=== PATIENT | male | born 1965 | race Caucasian/White ===

== ENCOUNTER 2017-04-18 15:13 | Observation (INO) ==
[2017-04-18] MEDS ORDERED: 0.9 % Sodium Chloride 1,000 ML IVC ONE (15:24)
--- NOTE | 2017-04-18 15:28 | Emergency Department Note ---
Disposition Clinical Impression: Transient cerebral ischemia Qualifiers: Transient cerebral ischemia type: unspecified Qualified Code(s): G45.9 - Transient cerebral ischemic attack, unspecified Disposition: Admitted As Inpatient Condition: Undetermined Time of Disposition: 19:12 Neuro HPI - General Chief Complaint: ED Neuro Symptoms/Deficit Stated Complaint: Neuro Sx/Light Headed Time Seen by Provider: 04/18/17 15:24 Source: patient Mode of arrival: ambulatory Limitations: no limitations Nursing Notes Reviewed: Yes Vital Signs Reviewed: Yes - History of Present Illness HPI Narrative: 52-year-old male with history of prediabetes, hypertension, history of PFO, arrives to [facility] emergency department complaining of lightheaded feeling, paresthesias on the right side of his face that started roughly 30 minutes prior to arrival. 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 He stated at that time he called a family member to bring him to the emergency department. The patient denies any chest pain, difficulty breathing, paresthesias other than of the face, weakness. The patient is resting comfortably on the bed. The patient states he is concerned as he has 2 brothers that are paralyzed due to previous stroke. Onset of Symptoms Date: 04/18/17 Onset of Symptoms Time: 15:00 Symptom Onset Unknown: Yes Location: right face History of same: No Severity: mild Quality: numbness Symptoms Improving: No Improves with: none Worsens with: none Context: sudden onset On Anticoagulants: No Associated symptoms: Reports: denies other symptoms Treatments Prior to Arrival: none - Related Data Home Medications: Home Medications Medication Instructions Recorded Confirmed Aspirin [Adult Low Dose Aspirin EC] 81 mg PO DAILY 03/03/16 04/18/17 Lisinopril/Hydrochlorothiazide 1 each PO DAILY 03/03/16 04/18/17 [Zestoretic 10-12.5 mg Tablet] Tamsulosin [Flomax] 0.4 mg PO DAILY 03/03/16 04/18/17 Diclofenac Sodium [Voltaren] 1 appl TP QID PRN 04/18/17 04/18/17 Naproxen [Naprosyn] 500 mg PO BID PRN 04/18/17 04/18/17 Allergies/Adverse Reactions: Allergies Allergy/AdvReac Type Severity Reaction Status Date / Time shellfish derived Allergy Rash Verified 11/14/15 22:22 All systems ED: reviewed and negative except as stated. Constitutional: Denies: fever, chills, weakness, weight change Eyes: Denies: eye pain, eye discharge, vision change ENT ED: Denies: ear pain, throat pain, dental pain, hearing loss, epistaxis, congestion, dysphagia Cardiovascular: Denies: chest pain, palpitations, dyspnea on exertion, edema, syncope Respiratory: Denies: cough, dyspnea, wheezes, hemoptysis, stridor Gastrointestinal: Reports: as per HPI Genitourinary: Denies: urgency, dysuria, frequency, hematuria Musculoskeletal: Denies: back pain, neck pain, arthralgia, myalgia Neurological: Reports: paresthesias. Denies: headache, weakness, numbness, confusion, abnormal gait, vertigo Past Medical History - Past Medical History Attestation: Yes The following information was validated with the patient. Source: patient Medical history: Reports: hypertension, other Surgical history: Reports: other Psychiatric history: Reports: no psych history - Social History Smoking Status: Never smoker Smokeless Tobacco Status: Yes Alcohol use: Reports: none Drug use: Reports: none Physical Exam Physical Exam: General: Patient alert, no acute distress, not lethargic HEENT: Head normal inspection, atraumatic, PERRLA, oropharynx grossly intact and normal, trachea midline, no JVD Chest: Nontraumatic, nontender, normal chest rise CV: RRR with no murmurs, rubs, gallops Respiratory: Lungs clear to auscultation bilaterally, no rales, rhonchi, wheezes. Abdomen: Normal inspection, Normal bowel sounds 4 quadrants, nontender to palpation : Patient deferred Extremities: Normal inspection, full range of motion, appropriate pulses, capillary refill under 2 seconds Neurological: Patient alert and oriented 3, GCS 15, patient has mild decreased sensation on right side of his face, no other deficits noted. Skin: Warm, intact, no rashes noted - General Limitations: no limitations General appearance: alert Course Course Narrative: Spoke with Dr. Gomez in Radiology. No acute findings on CT of he patient's head. Vital Signs Temperature 98.8 F 04/18/17 15:19 Pulse Rate 81 04/18/17 15:19 Respiratory Rate 18 04/18/17 15:19 Blood Pressure 171/94 04/18/17 15:19 O2 Sat by Pulse Oximetry 96 04/18/17 15:19 Temperature 98.8 F 04/18/17 15:19 Pulse Rate 70 04/18/17 16:25 Respiratory Rate 18 04/18/17 17:44 Blood Pressure 122/65 04/18/17 17:44 O2 Sat by Pulse Oximetry 96 04/18/17 16:25 Oxygen Delivery Oxygen Delivery Room Air Neuro Symptoms/Deficit - Lab Data Result diagrams: 04/18/17 15:35 04/18/17 15:35 Lab Results 04/18/17 04/18/17 04/18/17 Range/Units 15:35 15:35 15:35 WBC 9.7 (4.3-11.1) K/mcL RBC 5.14 (4.19-5.50) M/mcL Hgb 14.4 (12.9-16.9) g/dL Hct 45.7 (37.5-50.1) % MCV 88.9 (83.0-100.0) fL MCH 28.0 (28.0-33.3) pg MCHC 31.5 L (31.6-35.5) g/dL RDW 13.7 (11.5-14.5) % Plt Count 228 (140-400) K/mcL MPV 11.0 (9.4-12.4) fL Immature Gran % 0.8 (0-4) % Seg Neutrophils % 61.8 % Lymphocytes % 25.3 % Monocytes % 9.6 % Eosinophils % 2.0 % Basophils % 0.5 % Neutrophils # 6.0 (1.6-8.9) K/mcL Lymphocytes # 2.4 (0.6-4.6) K/mcL Monocytes # 0.9 (0.0-1.3) K/mcL Eosinophils # 0.2 (0.0-0.6) K/mcL Basophils # 0.1 (0.0-0.2) K/mcL PT 11.0 (9.4-12.1) Seconds INR 1.0 APTT 32.9 (26.0-36.0) Seconds Sodium 139 (136-145) mEq/L Potassium 4.1 (3.5-4.5) mEq/L Chloride 106 (98-109) mEq/L Carbon Dioxide 26 (19-29) mEq/L BUN 19 (8-26) mg/dL Creatinine 0.92 (0.72-1.25) mg/dL Est GFR ( Amer) > 60 (> 60) Est GFR (Non-Af Amer) > 60 (> 60) BUN/Creatinine Ratio 21 (6-26) Glucose 90 (70-99) mg/dL Calculated Osmolality 290 (280-300) Calcium 9.4 (8.6-10.8) mg/dL Troponin I (0-0.03) ng/mL 04/18/17 Range/Units 15:35 WBC (4.3-11.1) K/mcL RBC (4.19-5.50) M/mcL Hgb (12.9-16.9) g/dL Hct (37.5-50.1) % MCV (83.0-100.0) fL MCH (28.0-33.3) pg MCHC (31.6-35.5) g/dL RDW (11.5-14.5) % Plt Count (140-400) K/mcL MPV (9.4-12.4) fL Immature Gran % (0-4) % Seg Neutrophils % % Lymphocytes % % Monocytes % % Eosinophils % % Basophils % % Neutrophils # (1.6-8.9) K/mcL Lymphocytes # (0.6-4.6) K/mcL Monocytes # (0.0-1.3) K/mcL Eosinophils # (0.0-0.6) K/mcL Basophils # (0.0-0.2) K/mcL PT (9.4-12.1) Seconds INR APTT (26.0-36.0) Seconds Sodium (136-145) mEq/L Potassium (3.5-4.5) mEq/L Chloride (98-109) mEq/L Carbon Dioxide (19-29) mEq/L BUN (8-26) mg/dL Creatinine (0.72-1.25) mg/dL Est GFR ( Amer) (> 60) Est GFR (Non-Af Amer) (> 60) BUN/Creatinine Ratio (6-26) Glucose (70-99) mg/dL Calculated Osmolality (280-300) Calcium (8.6-10.8) mg/dL Troponin I 0.01 (0-0.03) ng/mL - EKG Data EKG attestation: Yes I reviewed and interpreted this EKG. EKG results narrative: Heart rate 81 bpm. MI interval 149 ms. QTC 398 ms. Normal axis. Normal sinus rhythm. No ST elevation or ST depression noted. EKG from 11/15/15 identical in appearance. NIH Stroke Scale - Level of Consciousness LOC: Alert - LOC Questions LOC Questions: Answers both correctly - LOC Commands LOC Commands: Performs both correctly - Best Gaze Best Gaze: Normal - Visual Visual: No visual loss - Facial Palsy Facial Palsy: Normal - Motor Arms Motor Arm-Left: No drift for 10 seconds Motor Arm-Right: No drift for 10 seconds - Motor Legs Motor Leg-Left: No drift for 5 seconds Motor Leg-Right: No drift for 5 seconds - Limb Ataxia Limb Ataxia: Normal, No Ataxia - Sensory Sensory: Mild to moderate loss, "not as sharp" - Best Language Best Language: No aphasia - Dysarthria Dysarthria: Normal - Extinction and Inattention Extinction and Inattention: Normal - NIHSS Total Score NIHSS Total Score: 1 TPA Checklist - LKW: 3-4.5 hrs Add. Contraindications Patient/family understanding: The patient/family members have been counseled and understood the risk, benefit , and alternatives of treatment.
[2017-04-18 15:44] LABS: Basophils # 0.1 K/mcL (0.0-0.2); Basophils % 0.5 %; Eosinophils # 0.2 K/mcL (0.0-0.6); Hematocrit 45.7 % (37.5-50.1); Hemoglobin 14.4 g/dL (12.9-16.9); Immature Granulocytes % 0.8 % (0-4); Lymphocytes # 2.4 K/mcL (0.6-4.6); Lymphocytes % 25.3 %; Mean Corpuscular HGB Conc 31.5 g/dL (31.6-35.5); Mean Corpuscular Volume 88.9 fL (83.0-100.0); Monocytes # 0.9 K/mcL (0.0-1.3); Monocytes % 9.6 %; Red Blood Count 5.14 M/mcL (4.19-5.50); Red Cell Distribution Width 13.7 % (11.5-14.5); Segmented Neutrophils % 61.8 %
[2017-04-18 15:46] LABS: Platelet Count 228 K/mcL (140-400)
[2017-04-18 15:54] LABS: Activated Partial Thrombo Time 32.9 Seconds (26.0-36.0)
[2017-04-18 16:02] LABS: BUN/Creatinine Ratio 21 (6-26); Blood Urea Nitrogen 19 mg/dL (8-26); Calcium 9.4 mg/dL (8.6-10.8); Carbon Dioxide 26 mEq/L (19-29); Chloride 106 mEq/L (98-109); Glucose 90 mg/dL (70-99); Osmolality,Calculated 290 (280-300); Potassium 4.1 mEq/L (3.5-4.5); Sodium 139 mEq/L (136-145); eGFR For African Americans > 60 (> 60); eGFR For Non-African Americans > 60 (> 60)
[2017-04-18] MEDS ORDERED: Aspirin 325 MG TABLET PO ONE ×2 (16:33→17:30)
--- NOTE | 2017-04-18 17:04 | Emergency Department Note ---
Disposition Clinical Impression: Transient cerebral ischemia Disposition: Admitted As Inpatient Condition: Undetermined General Adult HPI - General Chief complaint: ED Neuro Symptoms/Deficit Stated complaint: Neuro Sx/Light Headed Time Seen by Provider: 04/18/17 15:24 Source: patient Mode of arrival: ambulatory Limitations: no limitations - History of Present Illness Pain Scale: 4 - Related Data Home Medications Medication Instructions Recorded Confirmed Aspirin [Adult Low Dose Aspirin EC] 81 mg PO DAILY 03/03/16 04/18/17 Lisinopril/Hydrochlorothiazide 1 each PO DAILY 03/03/16 04/18/17 [Zestoretic 10-12.5 mg Tablet] Tamsulosin [Flomax] 0.4 mg PO DAILY 03/03/16 04/18/17 Diclofenac Sodium [Voltaren] 1 appl TP QID PRN 04/18/17 04/18/17 Naproxen [Naprosyn] 500 mg PO BID PRN 04/18/17 04/18/17 Allergies Allergy/AdvReac Type Severity Reaction Status Date / Time shellfish derived Allergy Rash Verified 11/14/15 22:22 Constitutional: Denies: fever, chills, weakness, weight change Eyes: Denies: eye pain, eye discharge, vision change ENT ED: Denies: ear pain, throat pain, dental pain, hearing loss, epistaxis, congestion, dysphagia Cardiovascular: Denies: chest pain, palpitations, dyspnea on exertion, edema, syncope Respiratory: Denies: cough, dyspnea, wheezes, hemoptysis, stridor Gastrointestinal: Reports: as per HPI Genitourinary: Denies: urgency, dysuria, frequency, hematuria Musculoskeletal: Denies: back pain, neck pain, arthralgia, myalgia Neurological: Reports: paresthesias. Denies: headache, weakness, numbness, confusion, abnormal gait, vertigo Past Medical History - Past Medical History Medical history: Reports: hypertension, other Surgical history: Reports: other Psychiatric history: Reports: no psych history - Social History Smoking Status: Never smoker Smokeless Tobacco Status: Yes Alcohol use: Reports: none Drug use: Reports: none Physical Exam - General Limitations: no limitations General appearance: alert Course - Reevaluation(s) Reevaluation #1: I staffed the patient with the resident, Dr. Stringer. Patient presented with some facial numbness and weakness. There is concerned this could be indicative of a TIA. We called a stroke alert and the [facility] neurologists cleared the patient because all symptoms had resolved by the time the patient had gotten on the camera. The rest of our workup here was unremarkable. We spoke to our neurologist here who did feel that he is definitely concern. We will be arranging to admit the patient to the medicine service because this is not the first time the symptoms it happened the patient, therefore he needs a thorough workup. Time: 17:04 Vital Signs Temperature 98.8 F 04/18/17 15:19 Pulse Rate 81 04/18/17 15:19 Respiratory Rate 18 04/18/17 15:19 Blood Pressure 171/94 04/18/17 15:19 O2 Sat by Pulse Oximetry 96 04/18/17 15:19 Temperature 97.9 F 04/18/17 19:59 Pulse Rate 65 04/18/17 19:59 Respiratory Rate 16 04/18/17 19:59 Blood Pressure 138/85 04/18/17 19:59 O2 Sat by Pulse Oximetry 77 04/18/17 20:20 Oxygen Delivery Oxygen Delivery Room Air Medical Decision Making - Lab Data Result diagrams: 04/18/17 15:35 04/18/17 15:35 Lab Results 04/18/17 04/18/17 04/18/17 Range/Units 15:35 15:35 15:35 WBC 9.7 (4.3-11.1) K/mcL RBC 5.14 (4.19-5.50) M/mcL Hgb 14.4 (12.9-16.9) g/dL Hct 45.7 (37.5-50.1) % MCV 88.9 (83.0-100.0) fL MCH 28.0 (28.0-33.3) pg MCHC 31.5 L (31.6-35.5) g/dL RDW 13.7 (11.5-14.5) % Plt Count 228 (140-400) K/mcL MPV 11.0 (9.4-12.4) fL Immature Gran % 0.8 (0-4) % Seg Neutrophils % 61.8 % Lymphocytes % 25.3 % Monocytes % 9.6 % Eosinophils % 2.0 % Basophils % 0.5 % Neutrophils # 6.0 (1.6-8.9) K/mcL Lymphocytes # 2.4 (0.6-4.6) K/mcL Monocytes # 0.9 (0.0-1.3) K/mcL Eosinophils # 0.2 (0.0-0.6) K/mcL Basophils # 0.1 (0.0-0.2) K/mcL PT 11.0 (9.4-12.1) Seconds INR 1.0 APTT 32.9 (26.0-36.0) Seconds Sodium 139 (136-145) mEq/L Potassium 4.1 (3.5-4.5) mEq/L Chloride 106 (98-109) mEq/L Carbon Dioxide 26 (19-29) mEq/L BUN 19 (8-26) mg/dL Creatinine 0.92 (0.72-1.25) mg/dL Est GFR ( Amer) > 60 (> 60) Est GFR (Non-Af Amer) > 60 (> 60) BUN/Creatinine Ratio 21 (6-26) Glucose 90 (70-99) mg/dL Calculated Osmolality 290 (280-300) Calcium 9.4 (8.6-10.8) mg/dL Troponin I (0-0.03) ng/mL /04/29 Range/Units 15:35 WBC (4.3-11.1) K/mcL RBC (4.19-5.50) M/mcL Hgb (12.9-16.9) g/dL Hct (37.5-50.1) % MCV (83.0-100.0) fL MCH (28.0-33.3) pg MCHC (31.6-35.5) g/dL RDW (11.5-14.5) % Plt Count (140-400) K/mcL MPV (9.4-12.4) fL Immature Gran % (0-4) % Seg Neutrophils % % Lymphocytes % % Monocytes % % Eosinophils % % Basophils % % Neutrophils # (1.6-8.9) K/mcL Lymphocytes # (0.6-4.6) K/mcL Monocytes # (0.0-1.3) K/mcL Eosinophils # (0.0-0.6) K/mcL Basophils # (0.0-0.2) K/mcL PT (9.4-12.1) Seconds INR APTT (26.0-36.0) Seconds Sodium (136-145) mEq/L Potassium (3.5-4.5) mEq/L Chloride (98-109) mEq/L Carbon Dioxide (19-29) mEq/L BUN (8-26) mg/dL Creatinine (0.72-1.25) mg/dL Est GFR ( Amer) (> 60) Est GFR (Non-Af Amer) (> 60) BUN/Creatinine Ratio (6-26) Glucose (70-99) mg/dL Calculated Osmolality (280-300) Calcium (8.6-10.8) mg/dL Troponin I 0.01 (0-0.03) ng/mL Attestation Statement - Attestation Attestation: I, Dr. Marsh, examined this patient and my medical decision-making was reviewed with Dr. Leon, Resident Physician. I agree with the documented findings, disposition and treatment plan as described except to the extent set forth below. Please see my partner's note for details.
[2017-04-18] MEDS ORDERED: Naloxone 0.4 MG/ML INJ IVP PRN (21:05)
--- NOTE | 2017-04-18 21:20 | Internal Med History&Physical ---
<Enma Sagastume - Last Filed: 04/18/17 21:25> Date of Encounter: 04/18/17 Time of Encounter: 21:18 Assessment and Plan (1) Transient cerebral ischemia Current visit: Yes Status: Acute Per history and 2006, now with episode of right-sided facial numbness and tingling that resolved prior to admission. Head CT negative. Appears neurologically intact no deficits apparent. Hgb A1c, TSH, lipid panel, echo, carotid Dopplers and brain MRI pending. Consult Neurology if needed Qualifiers: Transient cerebral ischemia type: unspecified Qualified Code(s): G45.9 - Transient cerebral ischemic attack, unspecified (2) PFO (patent foramen ovale) Current visit: Yes Status: Acute s/p repair 2006. Cont ASA, echo pending (3) Hypertension Current visit: Yes Status: Acute controlled, cont home BP medications Qualifiers: Qualified Code(s): I10 - Essential (primary) hypertension (4) BPH (benign prostatic hyperplasia) Current visit: Yes Status: Acute cont home medication regimen Qualifiers: Qualified Code(s): N40.0 - Benign prostatic hyperplasia without lower urinary tract symptoms (5) DVT prophylaxis Current visit: Yes Status: [facility] Internal Medicine - H&P: HPI Chief complaint: Right sided face numbness and tingling History of present illness: Mr. Mckee is a 52 year old male with past medical history morbid obesity, PFO closure, TIA, BPH who presented to [facility] 04/18/2017 with complaints of right-sided face numbness and tingling. He was placed in observation status for CVA rule out. Patient says he was at work today driving when he had acute onset of right-sided facial numbness and tingling says he felt like his "felt heart beating in his head. Episode lasted only a few minutes. No numbness or tingling no vision changes no vision loss. Past Med Surg Social Fam HX - Past Medical History Medical history: hypertension, other Psychiatric history: no psych history - Past Surgical History Surgical History: other (PFO closure) - Social History Smoking Status: Never smoker Smokeless Tobacco Status: Yes Alcohol use: none Drug use: none - Family History Brother Hx Family Neurologic Disorders: Yes (CVA) Internal Medicine - H&P: Meds Aspirin [Adult Low Dose Aspirin EC] 81 mg PO DAILY 04/21/16 [History] Lisinopril/Hydrochlorothiazide [Zestoretic 10-12.5 mg Tablet] 1 each PO DAILY [History] Tamsulosin [Flomax] 0.4 mg PO DAILY 03/03/16 [History] Diclofenac Sodium [Voltaren] 1 appl TP QID PRN 04/18/17 [History] Naproxen [Naprosyn] 500 mg PO BID PRN 04/18/17 [History] Allergies shellfish derived Allergy (Verified 11/14/15 22:22) Rash All Systems PM: A 10-system review of systems was performed and is negative for pertinent findings except as documented above in the HPI. - Constitutional Constitutional: no chills, no fever(s), no night sweats - EENT Eyes: no change in vision, no discharge, no pain, no photophobia Ears: no ear discharge, no ear pain, no tinnitus Nose, mouth and throat: no dysphagia, no nasal discharge, no neck pain, no sore throat - Cardiovascular Cardiovascular ROS IM: no chest pain, no diaphoresis, no dyspnea, no lightheadedness, no palpitations, no syncope - Respiratory Respiratory: no cough, no dyspnea, no wheezing, no excessive phlegm production - Gastrointestinal Gastrointestinal: no abdominal pain, no diarrhea, no hematemesis, no hematochezia, no melena, no nausea, no vomiting - Musculoskeletal Musculoskeletal ROS IM: no numbness, no tingling - Integumentary Integumentary IM: no rash, no unusual bruising - Neurological Neurological ROS: no confusion, no convulsions, no focal weakness, no numbness, no tingling, no tremor(s) - Hematologic/Lymphatic Hematologic/Lymphatic: no easy bruising - Constitutional Vitals: Temp Pulse Resp BP Pulse Ox 97.9 F 65 16 138/85 77 04/18/17 19:59 04/18/17 19:59 04/18/17 19:59 04/18/17 19:59 04/18/17 20:20 General appearance: Present: A&O X 3, obese - Head Head exam: Present: atraumatic, normocephalic - Eye Eye exam: Present: PERRL, conjuntiva pink, sclera anicteric Pupils: Present: PERRL - Neck Neck exam general surgery: Present: supple, trachea midline. Absent: lymphadenopathy - Respiratory Respiratory exam: Present: CTAB. Absent: accessory muscle use, rales, rhonchi, wheezes - Cardiovascular Cardiovascular exam: Present: RRR, +S1, +S2. Absent: diastolic murmur, gallop, rubs, systolic murmur - GI/Abdominal GI/Abdominal exam: Present: normal bowel sounds, soft, no peritoneal signs. Absent: distended, tenderness - Extremities Exam Extremities exam: Present: warm, radial pulses palpable and symetrical. Absent : calf tenderness, cyanotic, pedal edema - Neurological Exam Neurological exam: Present: alert, CN II-XII intact, oriented X3, no focal deficits, strengths equal and symetr throughout. Absent: pronater drift, facial droop, speech deficit - Skin Skin exam: Present: dry, intact Internal Med - H&P Results - Labs CBC & Chem 7: 04/18/17 15:35 04/18/17 15:35 <Pablo Simon - Last Filed: 04/18/17 21:53> Date of Encounter: 04/18/17 Internal Medicine - H&P: HPI History of present illness: Mr. Mckee is a 52 year old male All Systems PM: A 10-system review of systems was performed and is negative for pertinent findings except as documented above in the HPI. - Constitutional Vitals: Temp Pulse Resp BP Pulse Ox 97.9 F 65 16 138/85 77 04/18/17 19:59 04/18/17 19:59 04/18/17 19:59 04/18/17 19:59 04/18/17 20:20 Internal Med - H&P Results - Labs CBC & Chem 7: 04/18/17 15:35 04/18/17 15:35 - Attending Attestation I examined this patient and my medical decision-making was reviewed with Ms. Sagastume. I agree with the documented findings, disposition and treatment plan as described except to the extent set forth below. 52 yo CM with history of TIA and PFO s/p closure comes in due to sudden onset facial numbness, double vision, head pressure and balance problems that lasted for a few hours. On exam, neurologically intact. CTAB. S1 & S2 present without murmurs, rubs or gallops. Labs reviewed. EKG personally reviewed - S. rhythm without any ST-T changes A/P: 1. TIA - Place on telemetry to observation. Patient failed aspirin. DC ASA. Start plavix and statin. ECHO and carotid dopplers. MRI in AM. 2. HTN JOSE GrBS
[2017-04-19 04:58] LABS: Basophils # 0.1 K/mcL (0.0-0.2); Basophils % 0.6 %; Eosinophils # 0.2 K/mcL (0.0-0.6); Eosinophils % 2.9 %; Hematocrit 41.3 % (37.5-50.1); Lymphocytes # 2.1 K/mcL (0.6-4.6); Lymphocytes % 25.3 %; Mean Corpuscular HGB Conc 30.8 g/dL (31.6-35.5); Mean Corpuscular Hemoglobin 27.4 pg (28.0-33.3); Mean Corpuscular Volume 89.2 fL (83.0-100.0); Mean Platelet Volume 11.6 fL (9.4-12.4); Monocytes % 11.9 %; Neutrophils # 4.9 K/mcL (1.6-8.9); Platelet Count 217 K/mcL (140-400); Red Blood Count 4.63 M/mcL (4.19-5.50); Red Cell Distribution Width 13.9 % (11.5-14.5); Segmented Neutrophils % 58.3 %
[2017-04-19 05:05] LABS: Hemoglobin 12.7 g/dL (12.9-16.9)
[2017-04-19 05:06] LABS: Hemoglobin A1C 5.8 %
[2017-04-19 05:13] LABS: Alanine Aminotransferase 21 Units/L (0-55); Albumin 2.9 g/dL (3.5-5.0); Albumin/Globulin Ratio 0.9 (1.1-2.2); Alkaline Phosphatase 65 Units/L (38-126); Aspartate Amino Transferase 15 Units/L (5-34); BUN/Creatinine Ratio 18 (6-26); Bilirubin,Total 0.3 mg/dL (0.2-1.2); Blood Urea Nitrogen 22 mg/dL (8-26); Calcium 8.5 mg/dL (8.6-10.8); Carbon Dioxide 28 mEq/L (19-29); Chloride 107 mEq/L (98-109); Chol/HDL Ratio 3.8 (0-4.9); Cholesterol 156 mg/dL (< 200); Globulin 3.3 g/dL (2.4-3.5); Glucose 94 mg/dL (70-99); HDL Cholesterol 41 mg/dL (40-59); LDL Cholesterol,Calculated 91 mg/dL (0-99); Osmolality,Calculated 295 (280-300); Sodium 141 mEq/L (136-145); Total Protein 6.2 g/dL (6.0-8.3); Triglycerides 120 mg/dL (< 150); eGFR For African Americans > 60 (> 60); eGFR For Non-African Americans > 60 (> 60)
[2017-04-19] MEDS: *HR* Enoxaparin 40 MG/0.4 ML SYRINGE SQ SCH (05:57)
[2017-04-19] MEDS ORDERED: Aspirin Enteric Coated 81 MG Tablet PO SCH (09:00)
--- NOTE | 2017-04-19 11:21 | Electrocardiograph Report ---
[place] [id number] Test Date: 2017-04-18 Pat Name: Fred Mckee Department: 105 Room: 3B13 Gender: M Region Manager: : [id number] Requested By: Vahe Stringer Order Number: [id number] Reading MD: Karan Crook MD Measurements Intervals [place] Rate: 81 P: -15 [place]: 149 QRS: 18 QRSD: 88 T: 17 QT: 361 QTc: 398 Interpretive Statements SINUS RHYTHM Poor R wave progression Electronically Signed On 04-19-2017 11:19:42 EDT by Karan Crook MD
--- NOTE | 2017-04-19 16:08 | Internal Med Progress Note ---
Date of Encounter: 04/19/17 - Constitutional Vitals: Temp Pulse Resp BP Pulse Ox 98.0 F 87 17 166/82 90 04/19/17 15:40 04/19/17 15:40 04/19/17 15:40 04/19/17 15:40 04/19/17 15:40 General appearance: Present: A&O X 3, obese Internal Medicine: Result - Labs CBC & Chem 7: 04/19/17 03:42 04/19/17 03:42 Labs: Short CBC 04/19/17 Range/Units 03:42 WBC 8.4 (4.3-11.1) K/mcL Hgb 12.7 L D (12.9-16.9) g/dL Hct 41.3 (37.5-50.1) % Plt Count 217 (140-400) K/mcL Neutrophils # 4.9 (1.6-8.9) K/mcL BMP 04/19/17 03:42 Sodium 141 Potassium 4.0 Chloride 107 Carbon Dioxide 28 BUN 22 Creatinine 1.22 Glucose 94 Calcium 8.5 L Liver Function 04/19/17 Range/Units 03:42 Total Bilirubin 0.3 (0.2-1.2) mg/dL AST 15 (5-34) Units/L ALT 21 (0-55) Units/L Alkaline Phosphatase 65 (38-126) Units/L Albumin 2.9 L (3.5-5.0) g/dL - ABG Interpretation ABG results: PT/INR, D-dimer PT 11.0 Seconds (9.4-12.1) 04/18/17 15:35 - Impressions Impressions Brain MRI 04/19/17 07:00 IMPRESSION: Unremarkable exam D/ / Fly Fox MD / Fly Fox MD Interpreting Provider: Fly Fox MD Consult Discharge Plan - Plan Referrals: Vahe Pruett DO [Primary Care Provider] -
--- NOTE | 2017-04-19 16:24 | Internal Med Progress Note ---
Date of Encounter: 04/19/17 Time of Encounter: 11:00 - Assessment and plan (1) Transient cerebral ischemia Current Visit: Yes Status: Acute Assessment and plan: History of same in the past. Patient was found at that time to have a PFO that was surgically repaired in 2006. Patient reports sudden onset right-sided facial numbness and tingling, blurred vision, confusion, "blacking out". Patient has strong family history CVA with 2 brothers who have had CVAs in the past. MRI was negative, as was echocardiogram, EF of 65%, normal systolic function, mild diastolic dysfunction and no significant valvular dysfunction, no pulmonary hypertension, and no evidence of PFO. Patient does have 80-99% stenosis of right ICA. Patient is aware and vascular has been consulted. I spoke with Dr. Pretty who will be here to see patient after office hours. Neurology is here to see pt at this time. Qualifiers: Transient cerebral ischemia type: unspecified Qualified Code(s): G45.9 - Transient cerebral ischemic attack, unspecified (2) Carotid stenosis, right Current Visit: Yes Status: Acute Assessment and plan: 80-99% stenosis right ICA. 60-79% left ICA. Velocities appear to be through the tortuous vessels. Vascular surgery has been consulted and will see patient after office hours. (3) PFO (patent foramen ovale) Current Visit: Yes Status: Resolved Assessment and plan: History. Repaired in 2006. (4) Hypertension Current Visit: Yes Status: Chronic Assessment and plan: Chronic. Continue home medication. Well-controlled at inpatient setting. Qualifiers: Hypertension type: essential hypertension Qualified Code(s): I10 - Essential (primary) hypertension (5) BPH (benign prostatic hyperplasia) Current Visit: Yes Status: Acute Assessment and plan: Continue medications. Qualifiers: Prostatic enlargement morphology: unspecified morphology Lower urinary tract symptom presence: presence of symptoms unspecified Qualified Code(s): N40.0 - Benign prostatic hyperplasia without lower urinary tract symptoms (6) DVT prophylaxis Current Visit: Yes Status: Acute Assessment and plan: Lovenox subcutaneous daily. - Time Spent With Patient less than 15 minutes - Subjective Interval history: Patient has returned from testing. He is sitting up in a bedside chair. He is alert and oriented and without any neurological deficits. His speech is clear, he denies any blurred vision or vision changes, his grasps and extremity strength are strong and equal bilaterally. Facial movements are symmetrical. Patient states that he was driving yesterday and became confused, "blacking out ". He also reports blurred vision and right-sided facial numbness and tingling that resolved prior to admission. He became concerned and came to the emergency department. He has a strong family history of CVA, he has 2 brothers who have had strokes in the past. He has also had a TIA in the past. He had a PFO that was found during an echocardiogram after his last TIA, it was surgically repaired in 2006. - Constitutional Vitals: Temp Pulse Resp BP Pulse Ox 98.0 F 87 17 166/82 90 04/19/17 15:40 04/19/17 15:40 04/19/17 15:40 04/19/17 15:40 04/19/17 15:40 General appearance: Present: cooperative, A&O X 3, morbidly obese, no acute distress, obese, answers questions appropriately - Head Head exam: Present: normal inspection - Eye Eye exam: Present: normal appearance, conjuntiva pink. Absent: nystagmus - ENT ENT exam: Present: mucous membranes moist, normal exam - Neck Neck exam general surgery: Present: normal inspection. Absent: lymphadenopathy , tenderness - Respiratory Respiratory exam: Present: CTAB, respiratory distress. Absent: chest wall tenderness, rales, rhonchi, stridor, wheezes, tachypnea - Cardiovascular Cardiovascular exam: Present: RRR, +S1, +S2. Absent: bradycardia, clicks, diastolic murmur, gallop, systolic murmur, tachycardia - Expanded Cardiovascular Exam Peripheral pulses: 1+: Dorsalis Pedis (L) PM, Dorsalis Pedis (R) PM - GI/Abdominal GI/Abdominal exam: Present: distended, normal bowel sounds, soft. Absent: firm , hernia, hepatomegaly, tenderness - Extremities Exam Extremities exam: Present: full ROM, pedal edema, warm, radial pulses palpable and symetrical. Absent: tenderness Additional comments: Normal for patient. +1-2 nonpitting. - Neurological Exam Neurological exam: Present: alert, oriented X3, no focal deficits, strengths equal and symetr throughout. Absent: altered, motor sensory deficit, pronater drift, facial droop, speech deficit Internal Medicine: Result - Labs CBC & Chem 7: 04/19/17 03:42 04/19/17 03:42 Labs: Short CBC 04/19/17 Range/Units 03:42 WBC 8.4 (4.3-11.1) K/mcL Hgb 12.7 L D (12.9-16.9) g/dL Hct 41.3 (37.5-50.1) % Plt Count 217 (140-400) K/mcL Neutrophils # 4.9 (1.6-8.9) K/mcL BMP 04/19/17 03:42 Sodium 141 Potassium 4.0 Chloride 107 Carbon Dioxide 28 BUN 22 Creatinine 1.22 Glucose 94 Calcium 8.5 L Liver Function 04/19/17 Range/Units 03:42 Total Bilirubin 0.3 (0.2-1.2) mg/dL AST 15 (5-34) Units/L ALT 21 (0-55) Units/L Alkaline Phosphatase 65 (38-126) Units/L Albumin 2.9 L (3.5-5.0) g/dL - ABG Interpretation ABG results: PT/INR, D-dimer PT 11.0 Seconds (9.4-12.1) 04/18/17 15:35 - Impressions Impressions Brain MRI 04/19/17 07:00 IMPRESSION: Unremarkable exam D/ / Fly Fox MD / Fly Fox MD Interpreting Provider: Fly Fox MD Consult Discharge Plan - Plan Referrals: Vahe Pruett DO [Primary Care Provider] -
--- NOTE | 2017-04-19 17:09 | Neurology - Consult Note ---
Date of Encounter: 04/19/17 Time of Encounter: 17:06 Assessment and Plan (1) Transient cerebral ischemia Current Visit: Yes Status: Acute I believe this gentleman did suffer an episode of left cerebral hemispheric transient ischemia. This is likely due to the left internal carotid artery stenosis. Other factors to consider might be genetic factors, and I also believe that a hypercoagulable workup is in order. Vascular evaluation is yet pending. I would probably recommend starting him on Plavix 75 mg daily at some point. Echocardiogram has been completed and was negative. Risk factor management is paramount. Additional testing from my perspective at this time is not necessary. Counseling regarding dietary measures and weight reduction is also indicated. I will reevaluate him at your request. The documentation in the history of HPI and plan were at least partially created by [employer] recognition technology by Dr. Rodríguez. Errors in grammar, wording or other phrases may exist. If errors are found after the documentation signed, they will be addressed individually in the addendum section of this document when appropriate. Qualifiers: Transient cerebral ischemia type: unspecified Qualified Code(s): G45.9 - Transient cerebral ischemic attack, unspecified History of Present Illness HPI: Mr. Mckee is a 52 year old male who was seen and evaluated secondary to an episode of transient cerebral ischemia is a very pleasant gentleman with a history of hypertension and glucose intolerance and morbid obesity. He informs me that he experienced sudden onset of paresthesias of the right face along with blurred vision. He states that he felt a bit disoriented initially. His symptoms resolved after about a minute or so. He denied headache denied numbness tingling or weakness of the right arm or leg. He denied diplopia. Denied any speech difficulties. Currently he is back to his baseline. MRI scan brain was completely normal. Carotid duplex Doppler studies reveal 80-99% stenosis of the right internal carotid artery and 60-79% stenosis of the more symptomatic left ICA. The left ICA stenosis was more likely responsible for this event. He does have a history of PFO which is been previously closed. He also reports a family history of individuals having stroke at a young age. He admits to his taking aspirin 81 mg daily prior to this event. Past Med Surg Social Fam HX - Past Medical History Medical history: hypertension, other Psychiatric history: no psych history - Past Surgical History Surgical History: other - Social History Smoking Status: Never smoker Smokeless Tobacco Status: Yes Alcohol use: none Drug use: none - Family History Brother Hx Family Neurologic Disorders: Yes (CVA) Medications and Allergies Aspirin [Adult Low Dose Aspirin EC] 81 mg PO DAILY 03/03/16 [History] Lisinopril/Hydrochlorothiazide [Zestoretic 10-12.5 mg Tablet] 1 each PO DAILY [History] Tamsulosin [Flomax] 0.4 mg PO DAILY 03/03/16 [History] Diclofenac Sodium [Voltaren] 1 appl TP QID PRN 04/18/17 [History] Naproxen [Naprosyn] 500 mg PO BID PRN 04/18/17 [History] Allergies shellfish derived Allergy (Verified 11/14/15 22:22) Rash All Systems: A 10-system review of systems was performed and is negative for pertinent findings except as documented above in the HPI. Review of Systems: Review of systems is consistent with a history of present illness otherwise negative. Physical Examination - Vital Signs Vital Signs: Initial Vital Signs Temp Pulse Resp BP Pulse Ox 98.8 F 81 18 171/94 96 04/18/17 15:19 04/18/17 15:19 04/18/17 15:19 04/18/17 15:19 04/18/17 15:19 - Neurologic Detailed motor examination: full strength in all major muscle groups Motor examination - right side: 5/5: deltoids, biceps, triceps, wrist flexion, wrist extension, science specialist, hip flexors, tibialis Anterior, quadriceps, toe extension (EHL), plantarflexion Motor examination - left side: 5/5: deltoids, biceps, triceps, wrist flexion, wrist extension, hip flexors, science specialist, quadriceps, tibialis Anterior, toe extension (EHL), plantarflexion Reflexes: Biceps: 1+, Triceps: 1+, Brachioradialis: 1+, Patella: 1+, Achilles: 1 + Mental Status Examination: awake, alert, oriented to person, oriented to place, oriented to time, follows commands appropriately, answers questions appropriately, no agnosia, no aphasia, no aproxia Cranial nerve examination: PERRL, EOMI, visual castellanos intact, corneal reflexes brisk symmetrically, sensory to face intact, mastication intact, no facial asymmetry is present, no dysarthria, hearing is intact symmetrically, soft palate elevates bilaterally upon phonation, gag reflex intact, flexes SCM and trapezius muscles symmetrically with full power, tongue protrudes midline, no atrophy or facial fasiculations present Cerebellar examination: no dysmetria, performs finger to nose and heel to willis symmetrically without ataxia, no gait ataxia, no truncal ataxia, no difficulty with rapid alternating movements Results - Laboratory Findings CBC and BMP: 04/19/17 03:42 04/19/17 03:42 Abnormal lab findings: Abnormal lab results Hgb 12.7 g/dL (12.9-16.9) L D 04/19/17 03:42 MCH 27.4 pg (28.0-33.3) L 04/19/17 03:42 MCHC 30.8 g/dL (31.6-35.5) L 04/19/17 03:42 Hemoglobin A1c 5.8 % (-5.6) H 04/19/17 03:42 Calcium 8.5 mg/dL (8.6-10.8) L 04/19/17 03:42 Albumin 2.9 g/dL (3.5-5.0) L 04/19/17 03:42 Albumin/Globulin Ratio 0.9 (1.1-2.2) L 04/19/17 03:42 Consult Discharge Plan - Plan Referrals: Vahe Pruett DO [Primary Care Provider] -
--- NOTE | 2017-04-19 18:00 | Vascular/Endovasc Consult Note ---
Date of Encounter: 04/19/17 Time of Encounter: 17:55 Assessment and Plan (1) Transient cerebral ischemia Current Visit: Yes Status: Acute The patient has a indeterminate history to suggest TIA. I would agree with use of antiplatelet therapy for this patient but I do not believe emergent angiography or carotid intervention is appropriate. I would recommend that the patient have a CT angiogram of the neck to further document his vascular anatomy and to illustrate the distal internal carotid artery anatomy as well as the anatomy at the base of the skull. From the duplex images it would suggest he has significant tortuosity but no obvious plaque formation. The CT scan would help clarify his anatomy will for now in for potential future issues. Of note the patient has had 2 brothers that had suffered severe strokes leaving them with residual permanent paralysis. I discussed this issue in full with the patient. I have answered all of his questions. He understands the plan and agrees to proceed as recommended. Qualifiers: Transient cerebral ischemia type: unspecified Qualified Code(s): G45.9 - Transient cerebral ischemic attack, unspecified (2) Carotid stenosis, right Current Visit: Yes Status: Acute Please see discussion above for the TIA. The patient has marked tortuosity of his vessels and no significant stenosis on duplex scan. Elevated velocities appear to be due to tortuosity. - History of Present Illness Consult date: 04/19/17 Consult reason: Possible TIA/carotid stenosis Chief complaint: Visual disturbance History of present illness: Mr. Mckee is a 52 year old male Who self admitted himself late yesterday afternoon episode that occurred while driving. 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 He noted an abrupt onset of what he describes as blurred or double vision. He also experienced a sense of warmth and flushing type of pain on the right side of his head. He had no loss of consciousness. He has not had a previous similar type of event area he denies any history of seizure disorder or symptoms to suggest a pre-or post ictal state. He also admits that there was some degree of confusion. He had contacted his [id number] who then picked him up from work and took him to the emergency room where he was admitted. As part of his evaluation he had MRI of the brain and then earlier today had a duplex scan of the carotid vessels which led to the referral to vascular surgery. The duplex scan was abnormal in that the velocities were markedly elevated in the right internal carotid artery into the 80-99% range and also elevated on the left side into the 60-79% range. However on my personal review of the images and discussion with the technologist who performed the study there was no finding of any appreciable plaque in this area. The increased velocity appears to be due to marked tortuosity particularly of the right internal carotid artery which appears to demonstrate in its distal region a hairpin type curve. The patient does not believe he has had a previous carotid duplex scan with which to compare this study. Of note in 2005 he had an episode of left upper extremity numbness and paresthesias. This led to an extensive workup which identified a patent foramen ovale. Past Med Surg Social Fam HX - Past Medical History Medical history: hypertension, other Psychiatric history: no psych history - Past Surgical History Surgical History: other - Social History Smoking Status: Never smoker Smokeless Tobacco Status: Yes Alcohol use: none Drug use: none - Family History Brother Hx Family Neurologic Disorders: Yes (CVA) Medications and Allergies Aspirin [Adult Low Dose Aspirin EC] 81 mg PO DAILY 03/03/16 [History] Lisinopril/Hydrochlorothiazide [Zestoretic 10-12.5 mg Tablet] 1 each PO DAILY [History] Tamsulosin [Flomax] 0.4 mg PO DAILY 03/03/16 [History] Diclofenac Sodium [Voltaren] 1 appl TP QID PRN 04/18/17 [History] Naproxen [Naprosyn] 500 mg PO BID PRN 04/18/17 [History] Allergies shellfish derived Allergy (Verified 11/14/15 22:22) Rash All Systems Review: A 10-system review of systems was performed and is negative for pertinent findings except as documented above in the HPI. Exam Vital Signs, Last 4 Hours Temp Pulse Resp BP Pulse Ox 04/19/17 15:40 98.0 F 87 17 166/82 90 General: Present: Conversant, No Apparent Distress, Well developed, Well nourished, Other (Marked truncal obesity) HEENT: Present: Atraumatic, Normocephaly, Trachea midline, Pupils equal Neck: Absent: JVD, Left Carotid bruit, Right Carotid bruit, Midline deformity, Tracheal deviation, Thyromegaly Cardiac: Present: Reg Rate and Rhythm, Normal S1 and S2 Lungs: Present: Normal Breath Sounds, No Wheeze, Rales, Rhonchi Neuro: Present: Alert and responsive, No focal deficits noted, Cranial nerves grossly intact Abdomen: Present: Soft, Non-tender, Other (Marked obesity) Vascular: Present: Pulse, normal (Normal and symmetrical upper extremity pulses) Skin: Present: No rashes noted on visualized skin Consult Discharge Plan - Plan Referrals: Vahe Pruett DO [Primary Care Provider] -
--- NOTE | 2017-04-19 19:05 | Carotid Imaging Report ---
Carotid Duplex Patient Name:Fred Mckee Order Number:[id number] Procedure Date:04/19/2017 Date:1965Age:52 yrs Gender:Male Height: cm / inWeight:172.37 kg / 380.01 lb Location:[facility] Room #: [facility] [employer]:Ranjan Qiu RDCS Referring MD:Enma Sagastume CNP binder technician:DO Keven Bell MD:Damian Freeman MD Primary Indications:TIA Risk Factors Yes/No Hypertension Yes Diabetes Yes Impressions: The right internal carotid artery has an 80-99% stenosis. The left internal carotid artery has a 60-79% stenosis. Recommendations: Further evaluation is recommended. After imaging the patient returned to their room. Critical findings reported to Joy by phone by Ranjan Qiu RDCS. Findings Carotid Duplex: Right: The right proximal common carotid artery has a PSV of 202 cm/s and a EDV of 20 cm/s. The right mid common carotid artery has a PSV of 94 cm/s and a EDV of 19 cm/s. The right distal common carotid artery has a PSV of 86 cm/s and a EDV of 25 cm/s. The right bifurcation has a PSV of 69 cm/s and a EDV of 20 cm/s. The right proximal internal carotid artery has a PSV of 53 cm/s and a EDV of 15 cm/s. The right mid internal carotid artery has a PSV of 90 cm/s and a EDV of 35 cm/s. There is 80-99% stenosis in the right distal internal carotid artery with a PSV of 254 cm/s and a EDV of 101 cm/s. The right eca has a PSV of 151 cm/s and a EDV of 24 cm/s. The right vertebral artery has a PSV of 56 cm/s and a EDV of 19 cm/s. No plaque noted. High velocities appear to be d/t tortuous distal ICA. Left: The left proximal common carotid artery has a PSV of 173 cm/s and a EDV of 31 cm/s. The left mid common carotid artery has a PSV of 116 cm/s and a EDV of 24 cm/s. The left distal common carotid artery has a PSV of 118 cm/s and a EDV of 26 cm/s. The left bifurcation has a PSV of 118 cm/s and a EDV of 18 cm/s. The left proximal internal carotid artery has a PSV of 120 cm/s and a EDV of 25 cm/s. The left mid internal carotid artery has a PSV of 108 cm/s and a EDV of 46 cm/s. There is 60-79% stenosis in the left distal internal carotid artery with a PSV of 234 cm/s and a EDV of 71 cm/s. The left eca has a PSV of 92 cm/s and a EDV of 15 cm/s. The left vertebral artery has a PSV of 75 cm/s and a EDV of 36 cm/s. No plaque noted. High velocities appear to be d/t tortuous distal ICA. Prior Study: No prior study available for comparison. No plaque noted bilateral. High velocities appear to be d/t tortuous ICAs. Carotid Results Right PSV EDV Assessment Proximal CCA 202 20 Normal Mid CCA 94 19 Normal Distal CCA 86 25 Normal Bifurcation 69 20 Normal Proximal ICA 53 15 Normal Mid ICA 90 35 Normal Distal ICA 254 101 80-99% stenosis ECA 151 24 Normal Vertebral Artery 56 19 Normal Left PSV EDV Assessment Proximal CCA 173 31 Normal Mid CCA 116 24 Normal Distal CCA 118 26 Normal Bifurcation 118 18 Normal Proximal ICA 120 25 Normal Mid ICA 108 46 Normal Distal ICA 234 71 60-79% stenosis ECA 92 15 Normal Vertebral Artery 75 36 Normal Ratio's Right ICA/CCA Ratio: 2.70 ICA/CCA Values: 254/94 Left ICA/CCA Ratio: 2.00 ICA/CCA Values: 234/116 Updated by Damian Freeman MD on 04/19/2017 7:00:38 PM electronically signed on 04/19/2017 7:01:10 PM with status of Final
[2017-04-20 05:00] LABS: Basophils % 0.4 %; Eosinophils # 0.2 K/mcL (0.0-0.6); Eosinophils % 2.3 %; Hematocrit 43.5 % (37.5-50.1); Hemoglobin 13.5 g/dL (12.9-16.9); Immature Granulocytes % 0.8 % (0-4); Lymphocytes # 1.9 K/mcL (0.6-4.6); Lymphocytes % 20.9 %; Mean Corpuscular Hemoglobin 27.7 pg (28.0-33.3); Mean Corpuscular Volume 89.1 fL (83.0-100.0); Mean Platelet Volume 11.4 fL (9.4-12.4); Monocytes # 0.9 K/mcL (0.0-1.3); Monocytes % 10.3 %; Neutrophils # 5.9 K/mcL (1.6-8.9); Platelet Count 222 K/mcL (140-400); Red Blood Count 4.88 M/mcL (4.19-5.50); Red Cell Distribution Width 13.8 % (11.5-14.5); Segmented Neutrophils % 65.3 %
[2017-04-20 05:17] LABS: BUN/Creatinine Ratio 20 (6-26); Blood Urea Nitrogen 17 mg/dL (8-26); Calcium 8.8 mg/dL (8.6-10.8); Carbon Dioxide 28 mEq/L (19-29); Chloride 105 mEq/L (98-109); Glucose 111 mg/dL (70-99); Osmolality,Calculated 290 (280-300); Potassium 3.9 mEq/L (3.5-4.5); Sodium 139 mEq/L (136-145); eGFR For African Americans > 60 (> 60); eGFR For Non-African Americans > 60 (> 60)
[2017-04-20] MEDS: *HR* Enoxaparin 40 MG/0.4 ML SYRINGE SQ SCH (05:57)
--- NOTE | 2017-04-20 10:41 | Discharge Summary ---
Date of Encounter: 04/20/17 Time of Encounter: 07:30 - Discharge Diagnosis (1) Transient cerebral ischemia Priority: Primary Status: Acute Comments: Prior history of the same in the past. Pt was found at that time to have a PFO that was repaired in 2006. 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 Strong family history of CVA, 2 brothers with CVA in the past. MRI was negative, as was his echo. LVEF 65%, normal systolic function, mild diastolic dysfunction, and no significant valvular dysfunciton, no pulmonary htn and no evidence of PFO. Pt was found to have significant R ICA stenosis by doppler exam, however, it was reviewed by Dr. Pretty, and pt was found to have torturous ICAs with high velocities. Pt was seen by Dr. Pretty who is requesting that pt have a CTA neck for continued evaluation of this. He was also seen by neurology who recommends pt be started on Plavix 75mg po daily. Pt will also continue ASA and statin. I did speak to both the pt and his regarding lifestle changes, diet modification, and increasing exercise. Pt seems reluctant and states that he is too old to change now. is motivated and says that she will keep encouraging him. When I spoke with Dr. Pretty last evening on the phone, we agreed that CTA neck could be done outpatient. Order was sent to [facility] and pt needs prior authorization , will be done inpatient. Pt is asymptomatic at this time and neurologically intact. He has no deficits or MOLINA, no weakness or slurred speech, blurred vision, of sensory deficits. Qualifiers: Transient cerebral ischemia type: unspecified Qualified Code(s): G45.9 - Transient cerebral ischemic attack, unspecified (2) Carotid stenosis, right Priority: Secondary Status: Suspected Comments: Pt will need continued evaluation for carotid stenosis. CTA to be done prior to discharge. High velocities most likely due to torturous carotids. Pt will follow up with PCP for results and continued follow up and evalutation. (3) PFO (patent foramen ovale) Priority: Secondary Status: Resolved Comments: Resolved. Repaired in 2006. (4) Hypertension Priority: Secondary Status: Chronic Comments: Well controlled in inpt setting. Will continue home medications on discharge. Qualifiers: Hypertension type: essential hypertension Qualified Code(s): I10 - Essential (primary) hypertension (5) BPH (benign prostatic hyperplasia) Priority: Secondary Status: Chronic Comments: Continue home medications. Qualifiers: Prostatic enlargement morphology: unspecified morphology Lower urinary tract symptom presence: presence of symptoms unspecified Qualified Code(s): N40.0 - Benign prostatic hyperplasia without lower urinary tract symptoms (6) DVT prophylaxis Priority: Secondary Status: Acute - Discharge Medications Prescriptions: Atorvastatin [Lipitor] 40 mg PO HS #30 tablet Clopidogrel [Plavix] 75 mg PO DAILY #30 tablet Home Medications: Aspirin [Adult Low Dose Aspirin EC] 81 mg PO DAILY 03/03/16 [History] Lisinopril/Hydrochlorothiazide [Zestoretic 10-12.5 mg Tablet] 1 each PO DAILY [History] Tamsulosin [Flomax] 0.4 mg PO DAILY 03/03/16 [History] Diclofenac Sodium [Voltaren] 1 appl TP QID PRN 04/18/17 [History] Naproxen [Naprosyn] 500 mg PO BID PRN 04/18/17 [History] Atorvastatin [Lipitor] 40 mg PO HS #30 tablet 04/20/17 [Rx] Clopidogrel [Plavix] 75 mg PO DAILY #30 tablet 04/20/17 [Rx] Allergies/Adverse Reactions: Allergies shellfish derived Allergy (Verified 11/14/15 22:22) Rash Procedures/tests Complete & Pending: Procedures Performed prior 72 hours Category Date Time Status MR head/brain wo con [MR] Routine MRI 04/19/17 07:00 Completed EV carotid duplex imaging BI Routine Y 04/19/17 21:06 Completed EV echocardiogram Routine Y 04/19/17 21:06 Completed Date of admission: 04/18/17 16:49 Primary care physician: Ruib Bell Consults: 04/18/17 20:18 Consult to Digital Project Manager [CONS] Routine Reason for SW Consult: financial concerns for stay. 04/19/17 12:46 Consult to Vascular Surgery [CONS] Routine Consulting Provider: [facility] [place] Reason for Consult: TIA. 80-99% stenosis R ICA. Time Notified: 12:47 Call Completed: Yes Discharging clinician: Tamiko Monsalve Anticipated date of discharge: 04/20/17 - Patient Status Disposition: Home, Self-Care Condition: Good Functional capacity at discharge: independent ambulation Overall status at discharge: patient is back to baseline - Discharge Instructions Follow Up With: Vahe Pruett DO [Primary Care Provider] - Additional Instructions: Please follow up with Dr. Pruett in the next week to 10 days for an evaluation of current medications and imaging. Please start your aspirin, Plavix, and statin tomorrow. You will need to follow up with Dr. Pruett to be cleared to return to work. Reduced caloried diet and increasing activity daily and exercise are important to help with your condition. Return to the ER as needed for any other problems or concerns or for any new or returning symptoms of concern. - Diet and Activity Activity: increase activity as tolerated, return to work once cleared by your PCP/specialist, resume usual activities as tolerated Diet: diabetic diet, low fat, low cholesterol, low salt diet Hospital course: Mr. Mckee is a 52 year old male with history of TIA, PFO repair, HTN, obesity , and BPH. Pt states that he had sudden onset R facial numbness, tingling, confusion, and blurred vision while driving for work. Pt states that he has had TIA in the past. Symptoms have resolved, resolved when he arrived in the ER. Pt is neurologically intact and has no deficits. Speech is clear and vision is normal. There are no sensory deficits. Pt was seen by Dr. Rodríguez and he seems to agree with TIA and will be started on Plavix and a statin and will continue ASA at home. MRI was negative, as was echocardiogram. LVEF 56%, normal systolic function and mild diastolic dysfunction, no significant valvular dysfunction or pulmonary htn. Pt was found to have carotid stenosis by doppler, however, after review by Dr. Pretty, it was found that he had torturous ICAs with increased velocities. Pt is having a CTA neck for further evaluation and will follow with PCP. We discussed lifestyle changes, diet and exercise. He seems reluctant and feels that he is too old to start a change, however, his is motivated to help him. He states that he does not want to see a tufter. - Time Spent with Patient Total time spent providing and/or coordinating discharge services: Less than 30 minutes - Constitutional Vitals: Temp Pulse Resp BP Pulse Ox 97.9 F 76 20 126/81 93 04/20/17 06:55 04/20/17 06:55 04/20/17 06:55 04/20/17 06:55 04/20/17 07:54 General appearance: Present: cooperative, A&O X 3, morbidly obese, pleasant, no acute distress, obese, answers questions appropriately - Head Head exam: Present: normal inspection - Eye Eye exam: Present: EOMI, normal appearance, conjuntiva pink. Absent: nystagmus - ENT ENT exam: Present: mucous membranes moist, normal exam - Neck Neck exam general surgery: Present: normal inspection. Absent: lymphadenopathy , tenderness - Respiratory Respiratory exam: Present: CTAB. Absent: rales, respiratory distress, rhonchi, stridor, wheezes - Cardiovascular Cardiovascular exam: Present: RRR, +S1, +S2. Absent: clicks, diastolic murmur, gallop, systolic murmur - GI/Abdominal GI/Abdominal exam: Present: distended, normal bowel sounds, soft. Absent: firm , hepatomegaly, tenderness - Extremities Exam Extremities exam: Present: normal inspection, warm, radial pulses palpable and symetrical. Absent: pedal edema, tenderness - Neurological Exam Neurological exam: Present: alert, oriented X3, no focal deficits, strengths equal and symetr throughout. Absent: altered, motor sensory deficit, pronater drift, facial droop, speech deficit
[2017-04-20 11:38] VITALS: BP 146/79
== END 2017-04-20 14:00 | disposition home or self-care (01) ==
LOC: EMEROO 15:13 → 3BNU 15:13
PROVIDERS: ADMIT Internal Medicine; ATTEND Registered Nurse